=== PATIENT | male | born 1955 | race African-American/Black ===

== ENCOUNTER → 2024-06-17 13:37 | Outpatient (REF) | payer MEDICARE, OTHER, SELFPAY | LOC: HWRAD 13:37 | PROVIDERS: ATTENDING PHYSICIAN Student in an Organized Health Care Education/Training Program; FAMILY PHYSICIAN Family Medicine | DX: N18.32 Chronic kidney disease, stage 3b (principal) | CPT/HCPCS: 76770 ==

== ENCOUNTER → 2024-09-07 06:23 | Day surgery (SDC) | payer MEDICARE, OTHER, SELFPAY ==
[2024-09-07 08:00] LABS: Glucose - Point of Care 94 mg/dl (70-99)
== END ==
LOC: GI 06:23
PROVIDERS: ATTENDING PHYSICIAN Student in an Organized Health Care Education/Training Program
DX: Z12.11 Encounter for screening for malignant neoplasm of colon (principal); K57.30 Diverticulosis of large intestine without perforation or abscess without bleeding; D12.0 Benign neoplasm of cecum; D12.2 Benign neoplasm of ascending colon; D12.4 Benign neoplasm of descending colon; D12.8 Benign neoplasm of rectum
CPT/HCPCS: 45385; 45380; 88305; 82962

== ENCOUNTER → 2025-01-06 09:15 | Outpatient (REF) | payer MEDICARE, OTHER, SELFPAY | LOC: DHSLP 09:15 | PROVIDERS: ATTENDING PHYSICIAN Family Medicine | DX: G47.33 Obstructive sleep apnea (adult) (pediatric) (principal) | CPT/HCPCS: 95810 ==

== ENCOUNTER → 2025-02-16 07:47 | Outpatient (REF) | payer MEDICARE, OTHER, SELFPAY | LOC: MRI 3T 07:47 | PROVIDERS: ATTENDING PHYSICIAN Advanced Practice Midwife; FAMILY PHYSICIAN Family Medicine | DX: C61 Malignant neoplasm of prostate (principal) | CPT/HCPCS: 72197; A9575 ==

== ENCOUNTER 2025-03-21 10:22 | Emergency (ER) | payer MEDICARE, OTHER, SELFPAY ==
[2025-03-21 10:46] VITALS: BP 120/79
[2025-03-21 11:06] LABS: % Basophils 0.2 % (0-2); % Immature Granulocytes 0.3 % (0-0.5); % Lymphocytes 20.5 % (20.5-51.1); % Monocytes 10.9 % (1.7-9.3); % Neutrophils 67.1 % (42.2-75.2); Absolute Eosinophils 0.1 10^3/uL (0-0.7); Absolute Lymphocytes 2.8 10^3/uL (1.2-3.4); Absolute Monocytes 1.5 10^3/uL (0.1-0.6); Hematocrit 40.7 % (39.0-52.0); Hemoglobin 13.2 g/dL (13.0-18.0); Mean Corp Hgb Conc. 32.4 g/dL (33.0-37.0); Mean Corpuscular Hgb 26.3 pg (27.0-31.0); Mean Corpuscular Volume 81.1 fL (80.0-94.0); Nucleated Red Blood Cells % 0 % (-); Platelet Count 272 10^3/uL (130-400); Red Blood Cell Count 5.02 10^6/uL (4.70-6.10); Red Cell Dist. Width 14.5 % (11.5-14.5); White Blood Cell Count 13.4 10^3/uL (4.8-10.8)
[2025-03-21 11:28] LABS: ALT (SGPT) 25 U/L (0-50); AST (SGOT) 27 U/L (17-59); Albumin 4.4 g/dl (3.5-5.0); Alkaline Phosphatase 60 U/L (38-126); Blood Urea Nitrogen 22 mg/dl (9-20); Calcium 9.4 mg/dl (8.4-10.2); Carbon Dioxide 26 mmol/L (22-30); Chloride 101 mmol/L (98-107); Glucose 104 mg/dl (70-99); Sodium 140 mmol/L (135-145); Total Bilirubin 0.7 mg/dl (0.2-1.3); Total Protein 7.2 g/dl (6.3-8.2); eGFR 40.75
[2025-03-21 11:33] LABS: Troponin I < 0.012 ng/ml
[2025-03-21 13:25] VITALS: BP 120/78
--- NOTE | 2025-03-21 13:57 | ED.GENMED ---
History of Present Illness
General
Chief Complaint: Chest Problem
Source: patient
Exam Limitations: none
Time Seen by Provider: 03/21/25 13:25
History of Present Illness
History of Present Illness:
69yoM with a history of hypertension, hyperlipidemia, and prostate cancer presenting for evaluation of chest pain. Patient had a fall 2 days ago and struck his left chest wall. Patient did not have any pain initially developed some mild pain
yesterday. He was in the car this morning driving around 10 AM when he started to experience worsening chest pain. The pain started to radiate across his chest. He became concerned so decided to come to the ED for evaluation. Pain is worse with
breathing. He took Tylenol last night which did seem to help. He is otherwise asymptomatic and denies any nausea, dizziness, diaphoresis, calf pain. No prior history of heart disease.
Phy Exam
General Physical Exam
General Presentation: well appearing and no apparent distress
General age: appears stated age
General Skin: warm and dry
General Habitus: normal
General Mental: alert
ENT Exam
ENT Exam: normocephalic
Cardiovascular Exam
Cardiovascular Exam: regular rate/rhythm, no edema and no murmur
Pulmonary Exam
Pulmonary Exam: lungs clear, no respiratory distress, no rales, no crackles, no rhonchi and other (+Point tenderness to L lateral chest wall. No skin changes or crepitus. Bilateral breath sounds equal. )
Gastrointestinal Exam
Gastrointestinal Exam: non tender, soft and non distended
Neurological Exam
Neurological Exam: alert
[place] Coma Scale
Eye Opening: Spontaneous
Verbal Response: Oriented
Motor Response: Obeys Commands
GCS Total Score: 15
Skin Exam
Skin Exam: normal color and warm/dry
Psychiatric Exam
Psychiatric Exam: normal mood/affect
Course
Orders/Labs/Results
Orders:
Orders
03/21/25 10:24
Electrocardiogram (*1) Urgent
Reason for Study: Chest Pain
EKG- Treatment ONCE
03/21/25 10:50
CR Ribs-left 3 Vw W/pa Chest Urgent
Comment:
Reason For Exam: pain in L ribs and across chest post fall
03/21/25 10:54
Complete Blood Count/With Diff Urgent
Comprehensive Metabolic Panel Urgent
Troponin I Urgent
03/21/25 13:55
Cardiac Monitoring- Treatment ONCE
03/21/25 13:56
Electrocardiogram (*1) Urgent
Reason for Study: Chest Pain
EKG- Treatment ONCE
03/21/25 14:19
D-Dimer Urgent
Troponin I Urgent
03/21/25 15:18
CT Chest PE Study Urgent
Comment:
Reason For Exam: CP, elevated D-dimer
03/21/25 17:00
Lidocaine [Lidocaine 4% Patch] 1 patch TOPICAL ONCE ONE
Apply Lidocaine patch(s) to:: L chest wall
Incentive Spirometry [Rx Incentive Spirometry] [RESP] Urgent
Frequency: q1h while awake
Abnormal Lab Results
03/21/25 03/21/25
10:54 14:19
WBC 13.4 H 10^3/uL
(4.8-10.8)
MCH 26.3 L pg
(27.0-31.0)
MCHC 32.4 L g/dL
(33.0-37.0)
Absolute Neuts (auto) 9.0 H 10^3/uL
(1.4-6.5)
Absolute Monos (auto) 1.5 H 10^3/uL
(0.1-0.6)
Monocytes % 10.9 H %
(1.7-9.3)
D-Dimer 4.66 H ug/mlFEU
(0.00-0.50)
BUN 22 H mg/dl
(9-20)
Creatinine 1.8 H mg/dL
(0.7-1.3)
Glucose 104 H mg/dl
(70-99)
03/21/25 10:54
03/21/25 10:54
Vital Signs
Initial and Last Documented VS:
Initial Vital Signs
Temp Pulse Resp Pulse Ox
98.1 F 84 16 99
03/21/25 10:39 03/21/25 10:39 03/21/25 10:39 03/21/25 10:39
Last Documented Vital Signs
Temp Pulse Resp BP Pulse Ox
98.1 F 97 23 167/87 98
03/21/25 10:39 03/21/25 16:45 03/21/25 16:45 03/21/25 16:29 03/21/25 16:45
MDM/Problems Addressed
Differential Diagnosis Includes:
69yoM here with L sided chest pain. Had a fall 2 days ago in which he struck his L chest. Developed mild pain yesterday. Worsening pain today and now radiating across the chest. Worse with deep breaths. VSS. He is well-appearing no acute distress.
There is mild tenderness to the chest wall on exam. Differential diagnosis includes but is not limited to: Rib fracture, rib contusion, pneumonia, ACS, PE
Initial ED plan: Cardiac labs and EKG obtained in triage. EKG shows NSR with nonspecific T wave changes. No ST abnormality noted. Troponin WNL. Rib series x-rays are normal. Will check repeat troponin/EKG and D-dimer.
*EKG
Interpreted by ED Provider?: Yes
EKG Intrepretation Date: 03/21/25
Heart Rate: 76
Rate: normal
Rhythm: sinus
Peel: normal axis
Interval: normal interval
QRS Pattern: normal QRS
Ischemia: T-wave inversion (I and aVL)
*Critical Care Note
Total Time (30-74mins, 75-104mins- exclusive of procedures): Not Applicable
Update Note
Update Note:
Repeat EKG and troponin unchanged. D-dimer elevated and CTA chest subsequently ordered. CT is negative for pulmonary embolism. There are bilateral consolidations to both lower lobes which may be pneumonia or atelectasis. Patient denies any
fevers or cough so low clinical suspicion for pneumonia. Suspect splinting due to his rib injury causing atelectasis. Imaging also shows severe calcific atherosclerotic plaque in the left LAD incidentally. Patient was informed of this finding and
given a copy of the radiology report. He denies any history of CAD. He was advised to follow-up with cardiology as well as his PCP. Supportive care discussed in terms of his rib injury including lidocaine patches. Incentive spirometer provided.
Patient in agreement with plan and was discharged in stable condition.
ED Attending Note
-
Portions of this chart may have been created with voice recognition software.� Occasional wrong word or��sound alike� substitutions may have occurred due to the inherent limitations of voice recognition software.
Discharge Plan
Departure
Patient Disposition: Home (Routine Discharge)
Date of Disposition: 03/21/25
Time of Disposition: 17:01
Patient with high blood pressure during this ER visit?: No
Discharge Problem:
Chest wall pain, Coronary artery calcification seen on CT scan
Instructions: Rib injury in adults
Referrals:
Jd Cobian MD [Active] -
Andreas Dietz MD [Family Provider] -
Activity Restrictions/Additional Instructions:
Take Tylenol for pain. Use lidocaine patches daily (12 hours on, 12 hours off). Use incentive spirometer every hour while awake.
Please follow-up with your family doctor. You should also see a c application developer for the plaque seen on your heart on today's CT scan. Return to the ER with any new or worsening symptoms.
Interventions
Interventions:
*General Assessment Last Done: 03/21/25 14:15
*ED- Fall Risk Assessment Last Done: 03/21/25 14:15
*ED COVID-19 Vaccine History Last Done: 03/21/25 14:15
*Nursing Disposition Last Done: 03/21/25 17:22
ED- Cardiac Assessment Last Done: 03/21/25 13:32
ED- Pulmonary Assessment Last Done: 03/21/25 13:32
Discharge Date and Time
Discharge Date/Time: 03/21/25 17:22
Print Language: KHMER
[2025-03-21 14:11] VITALS: BP 114/78
[2025-03-21 14:15] VITALS: BMI 28.3
[2025-03-21 15:00] VITALS: BP 115/80
[2025-03-21 15:00] LABS: Troponin I < 0.012 ng/ml
[2025-03-21 15:12] LABS: D-Dimer 4.66 ug/mlFEU (0.00-0.50)
[2025-03-21 16:29] VITALS: BP 167/87
[2025-03-21] MEDS: LIDOCAINE 4% PATCH 1 PATCH TOPICAL (17:21)
== END 2025-03-21 17:22 | disposition home or self-care (01) ==
LOC: EMR 10:22
PROVIDERS: Physician Assistant; Student in an Organized Health Care Education/Training Program; EMERGENCY PHYSICIAN Emergency Medicine; FAMILY PHYSICIAN Family Medicine
DX: R07.89 Other chest pain (principal); I25.10 Atherosclerotic heart disease of native coronary artery without angina pectoris; I10 Essential (primary) hypertension; E78.5 Hyperlipidemia, unspecified
CPT/HCPCS: 99285; 71101; 71275; 80053; 84484; 85025; 85379; 93005; Q9967

== ENCOUNTER 2025-06-29 06:27 | Day surgery (SDC) | payer MEDICARE, OTHER, SELFPAY ==
[2025-06-29 07:27] LABS: Glucose - Point of Care 87 mg/dl (70-99)
== END 2025-06-29 09:09 | disposition home or self-care (01) ==
LOC: GI 06:27
PROVIDERS: ATTENDING PHYSICIAN Student in an Organized Health Care Education/Training Program
DX: Z12.11 Encounter for screening for malignant neoplasm of colon (principal); K57.30 Diverticulosis of large intestine without perforation or abscess without bleeding; D12.0 Benign neoplasm of cecum; D12.3 Benign neoplasm of transverse colon; Z86.0101 Personal history of adenomatous and serrated colon polyps
CPT/HCPCS: 45385; 82962; 88305